=== PATIENT | female | born 2000 | race Caucasian/White ===

== ENCOUNTER 2024-03-07 00:45 | Emergency (ER) | payer BC ==
[~2024-03-07] VITALS: Ht 170.2 cm; Wt 76.5 kg
[2024-03-07 00:49] VITALS: TEMP 97.9
[2024-03-07] MEDS ORDERED: Ondansetron 4 MG/2 ML VIAL IM ONE (01:30)
[2024-03-07 07:08] VITALS: BP 141/95; PULSE 109
== END 2024-03-07 07:09 | disposition home or self-care (01) ==
LOC: COL.ER 00:45
DX: F10.129 Alcohol abuse with intoxication, unspecified (principal)
CPT/HCPCS: J2405